=== PATIENT | female | born 1940 | race Caucasian/White ===

== ENCOUNTER 2020-02-11 16:18 | Inpatient (IN) | payer OTHER ==
[~2020-02-11] VITALS: Ht 121.9 cm; Wt 59.0 kg
[2020-02-11 16:19] VITALS: BP 193/101
[2020-02-11 18:04] LABS: URINE BILIRUBIN NEGATIVE (Negative); URINE BLOOD 3+ (Negative); URINE CLARITY CLEAR; URINE COLOR YELLOW; URINE GLUCOSE-RANDOM* 3+ (Negative); URINE KETONES NEGATIVE (Negative); URINE LEUKOCYTES-REFLEX NEGATIVE (Negative); URINE NITRITE-REFLEX NEGATIVE (Negative); URINE PROTEIN (DIPSTICK) TRACE (Negative); URINE UROBILINOGEN 0.2 E.U./dl (0.2-1.0)
[2020-02-11 18:13] LABS: BACTERIA-REFLEX 1-9 Few /HPF (None Seen); CASTS None Seen /LPF (None Seen); CRYSTALS None Seen /LPF (None Seen); SQUAMOUS 0-3 Few /LPF (0-3); URINE RBC 3-10 Few /HPF (0-2); URINE WBC-REFLEX 0-5 Rare /HPF (0-5)
[2020-02-11 18:16] LABS: ABSOLUTE NEUTROPHILS 6.8 thou/uL (1.4-8.2); BASOPHILS 0.6 % (0.0-2.0); EOSINOPHILS 0.6 % (0.0-3.0); HEMATOCRIT 43.4 % (37.0-47.0); HEMOGLOBIN 14.9 gm/dL (12.0-15.0); LYMPHOCYTES 15.8 % (24.0-44.0); MCH 31.1 pg (26.0-34.0); MCHC 34.4 g/dL (28.0-37.0); MCV 90.3 fL (80.0-100.0); MONOCYTES 7.5 % (1.0-8.0); PLATELET COUNT 236 thou/uL (150-400); POLYS 75.5 % (36.0-66.0); RDW 13.1 % (10.5-14.5); WBC 9.1 thou/uL (4.0-11.0)
[2020-02-11 18:30] LABS: ANION GAP 14 mmol/L (7-16); BUN 18 mg/dL (7-18); CALCIUM 8.7 mg/dL (8.5-10.1); CHLORIDE 104 mmol/L (98-107); CO2 23 mmol/L (21-32); CREATININE 1.4 mg/dL (0.6-1.0); GLUCOSE 231 mg/dL (74-106); POTASSIUM 4.7 mmol/L (3.5-5.1); SODIUM 141 mmol/L (136-145)
[2020-02-11 18:45] LABS: MAGNESIUM 2.1 mg/dL (1.8-2.4); SGOT 98 U/L (15-37); SGPT 42 U/L (30-65); TOTAL BILIRUBIN 0.8 mg/dL (0.2-1.0); TOTAL PROTEIN 7.3 g/dL (6.4-8.2); TROPONIN-I <0.06 ng/mL (<0.06)
[2020-02-11 20:24] VITALS: BP 160/91
--- NOTE | 2020-02-11 20:27 | NUR ---
HAND OFF TOOL SENT TO 4S
[2020-02-11 21:10] VITALS: BP 160/91
[2020-02-11 21:32] VITALS: BP 188/117
--- NOTE | 2020-02-11 22:49 | NUR ---
PATIENT ARRIVED VIA CARD WITH FLATWORK IRONER. ALERT AND ORIENTED X4. DENIES PAIN. IVF INFUSING PER THIS NURSE PER ORDER. NO SKIN BREAKDOWN NOTED. PATIENT DENIES FALL, HOWEVER, IS A FALL RISK. LEATHER SKINNER (ALFRED) SAW PATIENT AND ORDERS RECEIVED. RESTING QUIETLY. WILL MONITOR.
--- NOTE | 2020-02-12 03:50 | NUR ---
PATIENT HAS PERIODS OF CONFUSION, HOWEVER, SHE REMAINS APPROPRIATE. NEW ADMIT FROM ED LAST NIGHT. NEW ORDER RECEIVED AND GIVEN. RESTING QUIETLY. WILL MONITOR.
[2020-02-12 05:26] VITALS: BP 117/70
[2020-02-12 06:11] LABS: CHOLESTEROL 193 mg/dL (<200); HDL CHOLESTEROL 55 mg/dL (>40); LDL CHOLESTEROL 120 mg/dL (<100); TC:HDL 3.5 Ratio (Not establshd); TRIGLYCERIDE 92 mg/dL (<150); VLDL 18 mg/dL (<40)
[2020-02-12 06:14] LABS: SERUM ASSESSMENT Clear
[2020-02-12 06:16] LABS: CALCIUM 8.1 mg/dL (8.5-10.1); CREATININE 1.1 mg/dL (0.6-1.0); POTASSIUM 3.8 mmol/L (3.5-5.1)
[2020-02-12 07:30] VITALS: BP 118/73
--- NOTE | 2020-02-12 09:37 | EKG ---
[facility] [place] [address] ELECTROCARDIOGRAM REPORT Name: FANY ALBERT Room #: 443-P ADM IN M.R.#: [id number] Admission: 02/11/20 Attend Phys: Katherine Bob Discharge: Date of : 44 Report #: [id number] THIS REPORT FOR: cc: Jaclyn Chino MD, Emily G. MD Couchonnal, Luis F. MD ~ THIS REPORT FOR: //name// [facility] ED Test Date: 2020-02-11 Test Time: 16:26:26 Pat Name: FANY ALBERT Department: Room: [facility] Gender: F Feather Boner: FABRICIO : 1940 Requested By: Ramiro Montes De Oca Order Number: [id number] MD: Darwin Mckee Measurements Intervals Tiline Rate: 96 P: 60 IL: 185 QRS: -16 QRSD: 105 T: 73 QT: 387 QTc: 490 Interpretive Statements Sinus rhythm Borderline left axis deviation Compared to ECG 02/20/2009 18:03:47 No significant changes Electronically Signed On 02-12-2020 9:36:51 CDT by Darwin Mckee [email or web address] <ELECTRONICALLY SIGNED> By: Darwin Mckee MD 02/12/20 0936 1626 1626 Darwin Mckee MD /EPI
[2020-02-12 14:00] VITALS: BP 137/77
[2020-02-12 16:35] VITALS: BP 113/63
--- NOTE | 2020-02-12 17:07 | NUR ---
ASSUMED CARE OF PT AT 0700. PT IS A&OX4 AND VITAL SIGNS ARE STABLE. PT DENIES PAIN. PT UP TO RECLINER THIS SHIFT. PT WEAK AND IS UNABLE TO AMBULATE THE DISTANCE FROM CHAIR TO BATHROOM. IV TO LEFT WRIST PATENT. PT ENCOURAGED TO INCREASE WATER INTAKE. PT DEMONSTRATES POOR UNDERSTANDING OF FLUID AND NUTRITION NEEDS WELL POOR INSIGHT INTO PERSONAL SAFETY AND HEALTH NEEDS. FALL PRECAUTIONS IN PLACE AND NURSING WILL CONTINUE TO MONITOR.
[2020-02-12 19:45] VITALS: BP 124/75
--- NOTE | 2020-02-13 03:54 | NUR ---
PATIENT ALERT AND ORIENTED X3-4 WITH PERIODS OF CONFUSION. COOPERATIVE WITH CARE. IVF INFUSING W/O COMPLICATION. DENIES PAIN. REPORTED TO THIS NURSE FROM AM STAFF THAT PATIENT WANTS TO DRINK ONLY COLA'S NOT WATER AND ENJOYS PUDDINGS, ETC. AND EATS APPROX. 30% OF HER FOOD FROM DIETARY. SLEEPING THROUGHOUT THE NIGHT. WILL MONITOR.
[2020-02-13 08:00] VITALS: BP 148/90
--- NOTE | 2020-02-13 08:00 | NUR ---
PT ORIENTED TO PERSON AND . PT DIDN'T KNOW WHAT HOSPITAL SHE WAS IN AND THOUGHT IT WAS [facility] OR [facility]. PT DENIES ANY PAIN. PT DENIES ANY WEAKNESS, NUMBNESS, OR TINGLING TO LOWER EXT. PT LUNGS CLEAR. PT HAS SCD'S ON BILATERALY. PT USED BED GUADALUPE THIS AM AND VOIDED.
--- NOTE | 2020-02-13 15:30 | NUR ---
TALKED WITH PATIENT A LITTLE. PT STATED LUNCH WAS GOOD AND SHE REMEMBER HAVING ROAST BEEF AND POTATOES ON FRIDAY. SHE STATED SHE DIDN'T HAVE ANY CHILDRED OF HER OWN. SHE WANTED TO GET AHOLD OF HER BROTHER, BUT DIDN'T KNOW HIS NUMBER. PT STATED HE WORKS IN [employer]. PT REMIMDED ITS FRIDAY. SHE SAID THAT SHE WASN'T CLOSE TO HER BROTHER, ASKED WHY AND SHE SAID BECAUSE IM UGLY. REASURED PT SHE WAS NOT UGLY. PT STATED SHE WANTED TO TAKE A NAP. PT WANTING TO KNOW WHAT IT WILL TAKE FOR HER TO DISCHARGE. TOLD PT THAT SHE NEEDS TO BE SAFE AT HOME, SHE SAID HER DOENS'T GET AROUND VERY GOOD EITHER.
[2020-02-13 15:53] VITALS: BP 137/73
[2020-02-13 19:35] VITALS: BP 136/68
[2020-02-14 02:59] VITALS: BP 138/64
--- NOTE | 2020-02-14 07:37 | NUR ---
PT AOX3 WITH FORGETFULNESS IN REGARDS TO SITUATION. PT REPORTS 4/10 HEADACHE AND RIGHT SHOULDER PAIN. PT RECEIVING PRN PO APAP QID. PT CONTINUES TO REPORT RIGHT SHOULDER PAIN AFTER APAP GIVEN. DRY DIP WORKER HEADMASTER/MISTRESS NOTIFIED, ORDERS RECEIVED FOR 5% LIDODERM PATCH QDAY. AFTER LIDODERM PATCH APPLIED, PT CONTINUES TO REPORT DISCOMFORT IN RIGHT SHOULDER. WARM BLANKET APPLIED TO RIGHT SHOULDER, PT REPORTS IMMEDIATE RELIEF. PT TOLERATING PO INTAKE OF FLUIDS AND CARB CONTROLLED DIET.PT VOIDING PER BEDPAN. PT NOTED TO HAVE FREQUENCY AND URGENCY WITH URINATION. PT RESTING IN BED THROUGHOUT SHIFT, FREQUENT REPOSITIONING ENCOURAGED. PT NOTED TO SHIFT INDEPENDENTLY WHILE IN BED. PT ENCOURAGED TO NOTIFY STAFF FOR ALL NEEDS. CALL LIGHT WITHIN REACH, BED ALARM ON, BED IN LOWEST POSITION, FREQUENT MONITORING WILL CONTINUE.
[2020-02-14 09:19] VITALS: BP 148/79
[2020-02-14 11:57] LABS: HEMATOCRIT 40.5 % (37.0-47.0); HEMOGLOBIN 13.4 gm/dL (12.0-15.0); MCH 30.4 pg (26.0-34.0); MCHC 33.1 g/dL (28.0-37.0); MCV 91.8 fL (80.0-100.0); RBC 4.41 mil/uL (4.20-5.00); RDW 13.4 % (10.5-14.5); WBC 5.7 thou/uL (4.0-11.0)
[2020-02-14 12:29] LABS: CALCIUM 7.8 mg/dL (8.5-10.1); CREATININE 1.2 mg/dL (0.6-1.0); MAGNESIUM 1.6 mg/dL (1.8-2.4); POTASSIUM 3.4 mmol/L (3.5-5.1)
--- NOTE | 2020-02-14 14:54 | NUR ---
ASSUMED CARES AT 0700. PT ORIENTED TO PERSON, PLACE AND TIME, FORGETFUL. SLEEPY AND FATIGUED. DENIES PAIN. VOIDING MULTIPLE TIMES VIA BEDPAN AND *1 INCONTINENT EPISODE. LEFT FOREARM IV REMAINS INTACT AND PATENT, IV FLUIDS ADMINISTERED PER ORDER. FREQ. VISUAL CHECKS. CALL LIGHT WITHIN REACH. FALL PRECAUTIONS IN PLACE
[2020-02-14 19:07] VITALS: BP 137/86
[2020-02-15 00:06] LABS: GLYCOHEMOGLOBIN (HGB A1C) 10.5 % (4.8-5.6)
--- NOTE | 2020-02-15 03:17 | NUR ---
ASSUMED PT CARE AT 1915. VSS. PT IS ALERT TO SELF, SITUATION AND PLACE. IV IS IN HER LEFT FOREARM WITH FLUIDS RUNNING. PT TAKES HE MEDS WHOLE. PT IS INCONTINENT. PT ROLES WELL TO BE PUT ON THE BEDPAN. PT IS ALSO INCONTINENT. WILL CONTINUE TO MONITOR.
[2020-02-15 04:08] VITALS: BP 148/86
[2020-02-15 05:56] LABS: CALCIUM 8.4 mg/dL (8.5-10.1); MAGNESIUM 1.8 mg/dL (1.8-2.4); POTASSIUM 3.8 mmol/L (3.5-5.1)
[2020-02-15 08:18] VITALS: BP 120/63
--- NOTE | 2020-02-15 08:45 | NUR ---
ASSUMED CARE OF PT AT SHIFT CHANGE, A&0X4, VERY SEMINOLE, SAID SHE AMB W/WALKER NORMALLY, CANNOT WALK NOW. SEE SEPARATE INTERENTIONS FOR ASSESSMENTS. DENIES ANY PAIN/N. IS A FOOD SET UP. WILL CONTINUE TO MONITOR. ENCOURAGED HER TO USE CALL LIGHT FOR ANY NEEDS
[2020-02-15] MEDS ORDERED: ACETAMINOPHEN325 M1 PO (12:04)
[2020-02-15] MEDS ORDERED: AMLODIPINE BESY10 MG PO (12:04)
[2020-02-15] MEDS ORDERED: LIDOPATCH1 EACH TRANSDERM (12:04)
[2020-02-15] MEDS ORDERED: MAGNESIUM400 MG PO (12:04)
[2020-02-15] MEDS ORDERED: K-DUR 20 MEQ T20 MEQ PO (12:04)
[2020-02-15] MEDS ORDERED: FREESTYLE INSU1 EAC2 SUBQ (12:10)
[2020-02-15] MEDS ORDERED: FREESTYLE LANC1 EACH MISCELL (12:10)
[2020-02-15] MEDS ORDERED: FREESTYLE LITE1 EAC1 SUBQ (12:10)
[2020-02-15] MEDS ORDERED: LO-DOSE ASPIRIN81 M1 PO (12:10)
[2020-02-15] MEDS ORDERED: GLUCOPHAGE500 MG PO (12:10)
[2020-02-15 12:19] VITALS: BP 120/63
[2020-02-15 12:49] VITALS: BP 120/63
--- NOTE | 2020-02-15 13:03 | NUR ---
assessment: CM REVIEWED CHART AND MET WITH PATIENT. PT REPORTS LIVING IN A TRI LEVEL HOME WITH HER . PT WAS ADMITTED DUE TO [facility]. PT REPORTS THAT SHE HAS ABOUT 3 STEPS WITH HANDRAILS TO ENTER THE HOME AND A TRI LEVEL HOME WITH ABOUT 5 STEPS WITH HANDRAILS TO EACH FLIGHT. PT REPORTS SHE USES A CANE AT HOME FOR AMBULATION. PT REPORTS HAVING A WALKER AT HOME WELL. PT REPORTS BEING INDEPENDENT WITH ADLS. PT REPORTS NO HX OF HH OR SNF. CM DISCUSSED ROLE. PT REPORTS NO FAMILY NEAR THAT ASSIST THEM. PT REPORTS HER STILL DRIVES AND GOES TO THE STORE FOR THEM. CM PROVIDED PT WITH [employer]IVATE [employer]OURCES TO HELP ASSIST WITH SHOPPING/ERRANDS/CLEANING/COOKING IF NEEDED (VISITING [employer]). CM ALSO PROVIDED PATIENT WITH A [employer] BLUE BOOK WITH RESOURCES. CM DISCUSSED HH. PT HAS NO PREFERNENCE OF HH COMPANY. REFERRAL WAS SENT TO [facility]. PT IS DISCHARGING HOME WITH [facility] TODAY AND THEY HAVE ACCEPTED. PT REPORTS NEEDING TRANSPORTATION HOME. CM CONTACTED [employer] [facility] AND WHEELCHAIR VAN WILL BE HERE AT [phone].
== END 2020-02-15 17:24 | disposition home health service (06) | DRG 557 ==
LOC: ER 16:18 → 4S 20:04 → EROBS 20:04 → 4S 21:10
PROVIDERS: Emergency Medicine; Nurse Practitioner Family; ADMIT Internal Medicine; ATTEND Internal Medicine
DX: M62.82 Rhabdomyolysis (principal); N17.0 Acute kidney failure with tubular necrosis; E11.65 Type 2 diabetes mellitus with hyperglycemia; N18.9 Chronic kidney disease, unspecified; R31.9 Hematuria, unspecified; E87.6 Hypokalemia; E11.22 Type 2 diabetes mellitus with diabetic chronic kidney disease; E83.42 Hypomagnesemia; G47.00 Insomnia, unspecified; Z96.651 Presence of right artificial knee joint; M19.90 Unspecified osteoarthritis, unspecified site; Z86.73 Personal history of transient ischemic attack (TIA), and cerebral infarction without residual deficits; Z91.14 Patient's other noncompliance with medication regimen; Z79.899 Other long term (current) drug therapy
CPT/HCPCS: 10102